=== PATIENT | male | born 1995 | race Caucasian/White ===

== ENCOUNTER 2017-05-30 14:57 | Emergency (ER) | payer OTHER ==
--- NOTE | 2017-05-30 15:37 | Emergency Department Record ---
History of Present Illness - General Chief Complaint: Laceration(s) Stated Complaint: LACERATION ON RT HAND Time Seen by Provider: 05/30/17 15:31 Source: Patient Mode of Arrival: Ambulatory Limitations: No limitations - History of Present Illness Initial Commments: The patient is here due to lacerations to the base of the R 4th and 5th fingers. He cut them with a knife about an hour ago. He denies any numbness or tingling and his Td is UTD. Onset/Timin -: Hour(s) Place: Home Context: Accidental, Sharp object use Associated Symptoms: None Treatments Prior to Arrival: Other - Izzy Coma Scale Eye Response: (4) Open spontaneously Motor Response: (6) Obeys commands Verbal Response: (5) Oriented Izzy Total: 15 - Related Data Home Medications Medication Instructions Recorded Confirmed Last Taken Escitalopram Oxalate [Lexapro] 10 mg PO DAILY 05/30/17 05/30/17 05/25/17 Previous Rx's Medication Instructions Recorded Cephalexin [Keflex] 500 mg PO QID #20 cap 05/30/17 Allergies Allergy/AdvReac Type Severity Reaction Status Date / Time hydromorphone HCl AdvReac Mild HYPERSENSIT Verified 05/26/14 13:35 [From Dilaudid] IVITY morphine AdvReac Mild HYPERSENSIT Verified 05/26/14 13:36 IVITY Travel Screening - Travel/Exposure Within Last 30 Days Have you traveled within the last 30 days?: No - Travel/Exposure Within Last Year Have you traveled outside the [place] in the last year?: No - Additonal Travel Details Have you been exposed to anyone with a communicable illness?: No - Travel Symptoms Symptom Screening: None Past Medical History - SOCIAL HISTORY Smoking Status: Never smoker Alcohol Use: None Drug Use: None - RESPIRATORY Hx Respiratory Disorders: No - CARDIOVASCULAR Hx Cardio Disorders: No - NEURO Hx Neuro Disorders: No - GI Hx GI Disorders: Yes Hx Abdominal Pain: Yes (onset 05-25-2014) Hx Reflux: Yes Hx Nausea/Vomiting: Yes - Hx Genitourinary Disorders: No - ENDOCRINE Hx Endocrine Disorders: No - MUSCULOSKELETAL Hx Musculoskeletal Disorders: No - PSYCH Hx Psych Problems: No - HEMATOLOGY/ONCOLOGY Hx Hematology/Oncology Disorders: No Family Medical History Any Significant Family History?: No Hx Anxiety: Grandparents Hx Dementia: Grandparents Hx Depression: Grandparents Physical Exam - General General Appearance: Alert, Cooperative, No acute distress - Head Head exam: Atraumatic, Normocephalic - Extremities Extremities exam: Full ROM (Both the R 4th and 5th finger flexor FDP and FDS tendons have full flexion with no weakness or pain.). negative: Normal inspection (There is a one cm lac to the base of the R 4th and 5th fingers. The fingers are NVI distally with normal tendon function.) Image of Hand: 1 - 1 cm lac. 2 - 1 cm lac. - Neurological Neurological exam: Alert, Normal gait, Oriented X3. negative: Abnormal gait, Motor sensory deficit Course Vital Signs 05/30/17 15:01 Temperature 98.3 F Pulse Rate 76 Respiratory 16 Rate Blood Pressure 142/94 Pulse Ox 99 - Reevaluation(s) Reevaluation #1: Procedure note: The R hand lacs were anesth. with a total of 3 cc's Lido 1%. The wounds were prepped with betadine and lavaged with sterile saline. The wounds were explored and no tendon lac was visualized. The 2 lacs were then sutured each with 3 4.0 nylon sutures. There were no complications. 05/30/17 16:06 Disposition Disposition: Discharge Clinical Impression: Hand laceration Qualifiers: Encounter type: initial encounter Foreign body presence: without foreign body Laterality: right Qualified Code(s): S61.411A - Laceration without foreign body of right hand, initial encounter Disposition: Home, Self-Care Condition: (1) Good Instructions: Laceration (ED) Additional Instructions: Keep dry for 2 days then no soaking or swimming. Watch for signs of infection. Have the sutures removed in 10 days. Take the Keflex as directed. Return to the ER for any problems. Prescriptions: Cephalexin [Keflex] 500 mg PO QID #20 cap Forms: Patient Portal Access Time of Disposition: 16:09 Quality - Quality Measures Quality Measures: N/A - Blood Pressure Screening View Details: Yes Does Patient Have Any of the Following: No Blood Pressure Classification: Pre-Hypertensive BP Reading Systolic Measurement: 140 Diastolic Measurement: 86 Screening for High Blood Pressure: < Pre-Hypertensive BP, F/U Documented > [ G8950] Pre-Hypertensive Follow-up Interventions: Referral to alternative/primary care provider.
== END 2017-05-30 16:20 | disposition home or self-care (01) ==
LOC: ER 14:57
DX: S61.214A Laceration without foreign body of right ring finger without damage to nail, initial encounter (principal); S61.216A Laceration without foreign body of right little finger without damage to nail, initial encounter; W26.0XXA Contact with knife, initial encounter; Y92.009 Unspecified place in unspecified non-institutional (private) residence as the place of occurrence of the external cause
CPT/HCPCS: 12001; 99283

== ENCOUNTER 2017-06-10 14:24 | Emergency (ER) | payer OTHER ==
--- NOTE | 2017-06-10 14:52 | Emergency Department Record ---
History of Present Illness - General Chief Complaint: Suture removal Stated Complaint: SUTURE REMOVAL RT HAND Time Seen by Provider: 06/10/17 14:35 Source: Patient Mode of arrival: Ambulatory Limitations: No limitations - History of Present Illness Initial Comments: 21 yo male presents for suture remove of a right hand laceration from 10 days ago. He states no pain, redness or drainage. He does have a "pop feeling" when he moves his ring finger. The sensation in over the PIP with flexion of the ring finger. It does not get stuck or have any change in ROM MD Complaint: Suture/staple removal, Wound re-check -: Week(s) (1.5) Initial Visit For: Laceration Returns Today for: Staple/stitch removal, Wound recheck Symptoms Since Prior Visit: No new symptoms Associated Symptoms: Other (Feels a click or pop with finger flexion ) - Related Data Previous Rx's Medication Instructions Recorded Cephalexin [Keflex] 500 mg PO QID #20 cap 05/30/17 Allergies Allergy/AdvReac Type Severity Reaction Status Date / Time hydromorphone HCl AdvReac Mild HYPERSENSIT Verified 05/26/14 13:35 [From Dilaudid] IVITY morphine AdvReac Mild HYPERSENSIT Verified 05/26/14 13:36 IVITY Review of Systems Constitutional: Denies: Chills, Fever, Weakness Eyes: Denies: Eye discharge ENT: Denies: Congestion, Throat pain Respiratory: Denies: Cough Cardiovascular: Denies: Chest pain, Palpitations, Syncope Endocrine: Denies: Fatigue Gastrointestinal: Denies: Abdominal pain, Diarrhea, Nausea, Vomiting Genitourinary: Denies: Dysuria, Frequency, Hematuria Musculoskeletal: Denies: Arthralgia, Back pain, Myalgia, Neck pain Skin: Denies: Bruising, Change in color, Rash Neurological: Denies: Confusion, Headache, Numbness, Weakness Psychiatric: Denies: Anxiety Hematological/Lymphatic: Denies: Blood Clots, Easy bleeding, Easy bruising, Swollen glands Past Medical History - SOCIAL HISTORY Smoking Status: Never smoker Drug Use: None - RESPIRATORY Hx Respiratory Disorders: No - CARDIOVASCULAR Hx Cardio Disorders: No - NEURO Hx Neuro Disorders: No - GI Hx GI Disorders: Yes Hx Abdominal Pain: Yes (onset 05-25-2014) Hx Reflux: Yes Hx Nausea/Vomiting: Yes - Hx Genitourinary Disorders: No - ENDOCRINE Hx Endocrine Disorders: No - MUSCULOSKELETAL Hx Musculoskeletal Disorders: No - PSYCH Hx Psych Problems: No - HEMATOLOGY/ONCOLOGY Hx Hematology/Oncology Disorders: No Family Medical History Hx Anxiety: Grandparents Hx Dementia: Grandparents Hx Depression: Grandparents Physical Exam - General General Appearance: Alert, Oriented x3, Cooperative, No acute distress - Head Head exam: negative: Atraumatic, Normal inspection - Eye Eye exam: Normal appearance - ENT ENT exam: Normal exam Ear exam: Normal external inspection Nasal Exam: Normal inspection Mouth exam: Normal external inspection - Neck Neck exam: Normal inspection - Cardiovascular Peripheral Pulses: 2+: Radial (R) - Rectal Rectal exam: Deferred - exam: Deferred - Extremities Extremities exam: Normal inspection, Full ROM, Other (the right ring finger visibly stutures with movememt but has full ROM) - Neurological Neurological exam: Alert - Psychiatric Psychiatric exam: Normal affect, Normal mood - Skin Skin exam: Dry, Intact, Normal color, Warm Course - Reevaluation(s) Reevaluation #1: The patient has full ROM with the flexion of the fingers but he has a hesitation /click with flexion of the ring finger. I explained that is could relate to the tendon. I recommend splinting and follow up with a hand surgeon. He asked for names of hand physicians in both [facility] and [place]. These were provided. He is to be NWB with the right hand. He can call his PCP as well for close follow up 06/10/17 14:49 06/10/17 14:54 Disposition Disposition: Discharge Clinical Impression: Visit for suture removal Trigger finger Qualifiers: Trigger finger location: ring finger Laterality: right Qualified Code(s): M65.341 - Trigger finger, right ring finger Disposition: Home, Self-Care Condition: (1) Good Instructions: Stitches Removal (ED) Additional Instructions: Call the numbers provided for a hand surgery follow up of the clicking feeling when you move your finger Call your doctor as well to assist with follow up if needed Referrals: DESTINY DOSS [MEDICAL DOCTOR] - AUDRA KAPADIA M.D. [MEDICAL DOCTOR] - Forms: Patient Portal Access Time of Disposition: 14:54 Quality - Quality Measures Quality Measures: N/A - Blood Pressure Screening Does Patient Have Any of the Following: No Blood Pressure Classification: Pre-Hypertensive BP Reading Systolic Measurement: 145 Diastolic Measurement: 84 Screening for High Blood Pressure: < Pre-Hypertensive BP, F/U Documented > [ G8950] Pre-Hypertensive Follow-up Interventions: Referral to alternative/primary care provider.
== END 2017-06-10 15:19 | disposition home or self-care (01) ==
LOC: ER 14:24
DX: Z48.02 Encounter for removal of sutures (principal); M65.341 Trigger finger, right ring finger